=== PATIENT | male | born 1960 | race Caucasian/White ===

== ENCOUNTER 2016-09-27 15:39 | Emergency (ER) | payer MEDICARE ==
[2016-09-27 16:24] LABS: ABSOLUTE NEUTROPHIL COUNT 4.4 K/mm3 (1.8-7.7); BASO # 0.1 K/mm3 (0.0-0.2); BASO % 0.8 % (0.2-1.0); EOS # 1.4 (0.0-0.5); EOS % 18.9 % (0.9-2.9); HEMATOCRIT 49.1 % (32.0-52.0); HEMOGLOBIN 16.7 gm/l (14.0-18.0); IMM NEUT% 0.3 % (0-1); LYMPH # 1.2 (1.0-4.8); LYMPH % 15.9 % (15-45); MEAN CELL VOLUME 89.3 fl (80.0-94.0); MEAN CORPUSCULAR HEMOGLOBIN 30.4 pg (27.0-31.0); MEAN PLATELET VOLUME 9.7 fl (7.4-10.4); MONO # 0.4 (0.0-0.8); MONO % 5.9 % (4-12); NEUT % 58.2 % (43-75); PLATELET COUNT 211 K/mm3 (130-400); RED CELL DISTRIBUTION WIDTH 13.8 % (11.5-14.5)
[2016-09-27] MEDS ORDERED: METHYLPRED SOD SUCCINATE 125 MG VIAL ONE (16:30)
[2016-09-27] MEDS ORDERED: EPINEPHRINE 1 MG/ML 1ML AMP ONE (16:31)
[2016-09-27] MEDS ORDERED: FAMOTIDINE 10 MG/ML 2ML VIAL ONE (16:31)
[2016-09-27 16:50] LABS: BAND 9 % (0-10); BASOPHIL 1 % (0-1); EOSINOPHIL 19 % (1-3); LYMPHOCYTE 16 % (15-45); MONOCYTE 7 % (4-12); NEUTROPHILS 48 % (43-75); PLATELET ESTIMATE NORMAL (NORMAL); TOTAL CELLS COUNTED 100
[2016-09-27 16:53] LABS: ALB/GLOB RATIO 1.1 (>1.0); ALBUMIN 3.4 gm/dL (3.5-5.7); CALCIUM 9.1 mg/dL (8.6-10.3); MAGNESIUM 1.7 mg/dL (1.9-2.7)
[2016-09-27 16:55] LABS: CKMB ISOENZYME 2.6 ng/ml (0.6-6.3); TROPONIN I 0.15 ng/ml (0.0-0.06)
--- NOTE | 2016-09-27 18:38 | RAD ---
09/27/2016 6:34 PM CHEST - 2 VIEWS History: Swelling in face, throat, the enhancement 4 days. Full body painful rash. Comparison: 08/27/2014 Findings: Two views of the chest are obtained. The lungs are clear with out effusion or pneumothorax. The cardiomediastinal silhouette is unremarkable.. The osseous structures are intact.. IMPRESSION: No acute intrathoracic process.
== END 2016-09-27 20:38 | disposition home or self-care (01) ==
LOC: ED 15:39
DX: T78.40XA Allergy, unspecified, initial encounter (principal); R21 Rash and other nonspecific skin eruption; I10 Essential (primary) hypertension; Z79.52 Long term (current) use of systemic steroids; Z79.899 Other long term (current) drug therapy
CPT/HCPCS: 83880; 85025; 82550; 82553; 80053; 83735; 87880; 84484 ×2; 71020; 96375; 99284; 96372; 96374; 93005; 99283; J2930; J0171